=== PATIENT | female | born 1970 | race Asian ===

== ENCOUNTER 2018-08-01 00:35 | Emergency (ER) | payer OTHER, SELFPAY ==
[2018-08-01 00:56] VITALS: BP 149/83; PULSE 58; RESP 18; TEMP 36.8; O2SAT 100; BMI 31.7
[2018-08-01] MEDS: KETOROLAC 60 MG/2 ML VIAL 30 MG IV (01:28)
[2018-08-01] MEDS: ONDANSETRON 4 MG/2 ML INJ IV ×2 (01:29→03:14)
[2018-08-01] MEDS: SODIUM CHLORIDE 0.9% 1,000 ML 1000 ML IV (01:29)
[2018-08-01] MEDS: HYDROMORPHONE 1 MG INJ IV ×2 (01:29→03:34)
[2018-08-01 01:35] VITALS: BP 106/60; PULSE 69; RESP 18; O2SAT 98
[2018-08-01 02:15] LABS: Alanine Aminotransferase 36 IU/L (9-52); Albumin 4.5 g/dL (3.5-5.0); Albumin Globulin Ratio 1.4 (1.0-2.8); Alkaline Phosphatase 91 U/L (38-126); Aspartate Aminotransferase 33 IU/L (14-36); BUN Creatinine Ratio 26.7 (6-22); Bilirubin Total 0.8 mg/dL (0.2-1.3); Blood Urea Nitrogen 24 mg/dL (7-17); Calcium 8.8 mg/dL (8.4-10.2); Carbon Dioxide 23 mmol/L (22-32); Chloride 103 mmol/L (98-107); Estimated Glomerular Filt Rate > 60.0 mL/min (>60); Globulin 3.3 g/dL (1.7-4.1); Glucose 142 mg/dL (70-100); HEMOLYSIS < 15 (0-50); Lipase 148 U/L (23-300); Potassium 3.9 mmol/L (3.4-5.1); Sodium 140 mmol/L (137-145); Total Protein 7.8 g/dL (6.3-8.2)
[2018-08-01 02:18] LABS: Add Manual Diff / Slide Review NO; Basophils Percent Auto 0.8 % (0-2); Hematocrit 39.9 % (36-46); Hemoglobin 13.7 g/dL (12.0-16.0); Lymphocytes Percent Auto 26.7 % (25-40); Mean Corpuscular HGB Conc 34.5 % (30-36); Mean Corpuscular Hemoglobin 28.8 PG (26-34); Mean Corpuscular Volume 83.7 fL (80-100); Monocytes Percent Auto 6.7 % (3-14); Neutrophils Absolute Auto 5800 /uL (3000-5900); Neutrophils Percent Auto 62.8 % (50-75); Platelet Count 183 X10^3/uL (150-400); Red Blood Cell Count 4.76 X10^6/uL (4.0-5.2); Red Cell Distribution Width 14.2 % (11.6-14.8); White Blood Cell Count 9.3 X10^3/uL (4.5-11.0)
--- NOTE | 2018-08-01 02:21 | DI.CT.S_ITS ---
PROCEDURE: CT ABDOMEN PELVIS W CON INDICATIONS: low abdominal pain TECHNIQUE: After the administration of intravenous contrast, 5 mm thick sections acquired from the diaphragm to the symphysis. 5 mm coronal and sagittal reformats were acquired. For radiation dose reduction, the following was used: automated exposure control, adjustment of mA and/or kV according to patient size. COMPARISON: None. FINDINGS: Image quality: Excellent. ABDOMEN: Lung bases: Lung bases are clear. Heart size is normal. Solid organs: Liver is normal in size and enhancement. There is several subcentimeter hepatic cysts and a 1.2 cm hepatic cyst near the upper margin of the intrahepatic IVC. Gallbladder appears normal. Biliary system is non dilated. Pancreas enhances normally. Spleen is normal in size and enhancement. No adrenal nodules. Kidneys demonstrate normal size and enhancement, without hydronephrosis on the left but there is mild hydronephrosis on the right and hydroureter extending inferiorly through the right retroperitoneum to the submucosal tunnel margin of the distal right ureter where a 2 mm impacted far distal ureteral stone can be seen. Peritoneum and bowel: Bowel loops demonstrate normal wall thickness and caliber. No free fluid or air. Nodes and vessels: No retroperitoneal or mesenteric adenopathy by size criteria. Aorta and inferior vena cava are normal in size. Miscellaneous: No ventral hernias. PELVIS: Genitourinary: Bladder wall thickness is normal. Miscellaneous: No inguinal hernias or adenopathy. Normal appendix found. Bones: No suspicious bony lesions. No vertebral body compression fractures. IMPRESSION: Far distal right ureteral stone measures 2 mm, and is at the submucosal tunnel portion of the distal ureteral course virtually at the ureteral orifice. This produces mild hydronephrosis and hydroureter on the right but no additional urinary tract stone is found. Normal appendix. Note: These findings are concordant with the preliminary interpretation. Dictated by: Hector Hernandez M.D. on 08/01/2018 at 9:22 Approved by: Hector Hernandez M.D. on 08/01/2018 at 9:25
[2018-08-01 02:43] LABS: WBC Urine None Seen (0-5/HPF)
[2018-08-01 02:45] LABS: Bilirubin Urine UA NEGATIVE (NEGATIVE); Color Urine UA YELLOW; Glucose Urine UA NEGATIVE (Normal); Ketones Urine UA NEGATIVE (NEGATIVE); Leukocyte Esterase Urine UA NEGATIVE (NEGATIVE); Nitrite Urine UA Negative (Negative); Occult Blood Urine UA 3+ (Negative); Protein Urine UA 1+ (Negative); Specific Gravity Urine UA >=1.030 (1.000-1.035); Urobilinogen Urine UA 0.2 E.U./dL (0.2)
[2018-08-01 02:46] LABS: Appearance Urine UA Cloudy
[2018-08-01 02:47] LABS: Pregnancy Test Urine Negative (Negative)
[2018-08-01 02:59] LABS: Bacteria Urine Few (2-10); Calcium Oxalate Crystals Urine Few; RBC Urine 1-5/HPF (0-5/HPF)
[2018-08-01 03:00] LABS: Culture Indicated Urine Cult Not Indicated
[2018-08-01] MEDS: METOCLOPRAMIDE 10 MG/2 ML INJ IV (03:14)
[2018-08-01 03:50] VITALS: BP 140/76; PULSE 72; RESP 15; O2SAT 98
--- NOTE | 2018-08-08 11:54 | ED_ITS ---
HPI - Abdominal Pain General Chief Complaint: Abdominal Pain Stated Complaint: SHARP RIGHT SIDE STOMACH PAIN Time Seen by Provider: 08/01/18 01:02 Source: patient Mode of arrival: ambulatory Limitations: no limitations History of Present Illness HPI narrative: Patient complains of right-sided abdominal pain today. She denies fevers. No nausea or vomiting. No trauma. No dysuria. No sick contacts. Onset (ago): day(s) (One) Pain Consistency: constant Location: RUQ and RLQ Severity: moderate Quality: aching Radiation: none Migration to: no migration Relieving factors: nothing Exacerbating factors: nothing Context: other (No recent antibiotic use, no diarrhea) Associated symptoms: denies other symptoms Related Data Previous Rx's Medication Instructions Recorded hydrocodone-acetaminophen 2 tab PO Q4-6H PRN #14 tab 08/01/18 ondansetron 4 mg PO QID PRN #14 tab 08/01/18 Allergies Allergy/AdvReac Type Severity Reaction Status Date / Time No Known Drug Allergies Allergy Verified 08/01/18 00:56 Review of Systems Review of Systems All systems reviewed & are unremarkable except as noted in HPI and below Constitutional Denies chills, Denies fever(s), Denies lethargy and Denies weakness Eyes Denies change in vision, Denies eye discharge, Denies irritation and Denies loss of vision ENT Ears, Nose, Mouth, and Throat: Denies change in voice, Denies neck pain and Denies sore throat Cardiovascular Denies chest pain, Denies irregular heart rhythm, Denies lightheadedness, Denies palpitations, Denies dyspnea, Denies dyspnea on exertion and Denies orthopnea Respiratory Denies cough, Denies dyspnea, Denies dyspnea on exertion and Denies wheezing Gastrointestinal Gastrointestinal: Reports abdominal pain, Denies change in bowel habits, Denies diarrhea, Denies nausea and Denies vomiting Genitourinary Denies hematuria, Denies flank pain, Denies urinary incontinence and Denies urinary urgency Musculoskeletal Denies neck pain Integumentary/Breasts Denies pruritus, Denies erythema, Denies rash and Denies wounds Neurologic Denies confusion, Denies loss of vision and Denies weakness Psychiatric Denies anxiety, Denies confusion, Denies depression, Denies homicidal ideation and Denies suicidal ideation Endocrine Denies palpitations Hematologic/Lymphatic Denies easy bruising Allergic/Immunologic Denies wheezing PFSH Medical History Healthy adult (Acute) Surgical History No pertinent past surgical history (Acute) Social History Smoking Status: Never smoker Exam Initial Vital Signs Initial Vital Signs: Vital Signs Temperature 98.3 F 08/01/18 00:56 Pulse Rate 58 L 08/01/18 00:56 Respiratory Rate 18 08/01/18 00:56 Blood Pressure 149/83 H 08/01/18 00:56 Pulse Oximetry 100 08/01/18 00:56 Const General: cooperative and well developed Nutritional Appearance: well nourished Orientation: alert, awake, oriented x3 and not confused HENMT Head: normocephalic and atraumatic Ears: external ears normal and TM's normal bilaterally Nose: external nose normal and No nasal discharge Face and sinus: sinuses nontender, face symmetric, no sinus tenderness and No dry mucous membranes Mouth: oral mucosae normal and moist mucous membranes Teeth and gingiva: dentition normal Throat: tonsils normal and uvula midline Eyes General: appearance normal, both eyes and all related structures Eyelids: eyelids normal Conjunctivae: conjunctivae normal Sclera: sclerae normal Pupils: PERRL EOM: EOM intact bilaterally Neck Neck: normal visual inspection, trachea midline, No lymphadenopathy, No midline deformity and No JVD Lymphatic: No lymphedema Chest Chest: normal inspection of the chest Resp Effort & Inspection: normal respiratory effort, able to speak in complete sentences, no respiratory distress and no use of accessory muscles Auscultation: clear to auscultation bilaterally, no rales, no rhonchi and no wheezes Cardio Rate: regular rate Rhythm: regular rhythm Heart Sounds: no click, no gallops, no murmurs and no rubs Pulses: normal peripheral pulses GI Inspection: non-distended Palpation: soft, no hepatosplenomegaly, No guarding, No pulsatile mass and tender (Mild, right lower quadrant.) Auscultation: normal bowel sounds Back/Spine/Pelvis Back: No CVA tenderness Cervical Spine: cervical ROM normal and No pain with cervical ROM Thoracic/Lumbar Spine: thoracic and lumbar spine normal to inspection Skin General: no rashes or lesions noted, No jaundice and No petechiae Neuro General: alert, oriented x3, gait normal and no focal motor deficits Speech: speech normal Extrem General: full ROM, no clubbing, cyanosis or edema, no pedal edema and no calf tenderness Psych Appearance: well kempt Mental Status: mental status grossly normal Attitude: cooperative Thought Content: normal and suicidality Judgment: judgment good Course Course Narrative: Patient was worked up for her right lower quadrant pain including labs and CT imaging. She was treated symptomatically. She was found to have a right-sided stone in the distal ureter. Orders Ordered: Discontinued Medications Hydromorphone HCl (Dilaudid) 1 mg IV NOW ONE Stop: 08/01/18 01:24 Last Admin: 08/01/18 01:29 Dose: 1 mg Hydromorphone HCl (Dilaudid) 1 mg IV NOW ONE Stop: 08/01/18 03:32 Last Admin: 08/01/18 03:34 Dose: 1 mg Sodium Chloride (Normal Saline 0.9%) 1,000 mls @ 1,000 mls/hr IV BOLUS ONE Stop: 08/01/18 02:23 Last Infusion: 08/01/18 02:41 Dose: 0 mls/hr Admin: 08/01/18 01:29 Dose: 1,000 mls/hr Ketorolac Tromethamine (Toradol) 30 mg IV NOW ONE Stop: 08/01/18 01:24 Last Admin: 08/01/18 01:28 Dose: 30 mg Metoclopramide HCl (Reglan) 10 mg IV NOW ONE Stop: 08/01/18 03:13 Last Admin: 08/01/18 03:14 Dose: 10 mg Ondansetron HCl (Zofran) 4 mg IV NOW ONE Stop: 08/01/18 01:24 Last Admin: 08/01/18 01:29 Dose: 4 mg Ondansetron HCl (Zofran) 4 mg IV NOW ONE Stop: 08/01/18 03:13 Last Admin: 08/01/18 03:14 Dose: 4 mg MDM - Abdominal Pain Medical Records Attestation: I reviewed the patient's medical records. Lab Data Attestation: I reviewed the patient's lab results. Result diagrams: 08/01/18 01:50 08/01/18 01:50 Lab Results 08/01/18 08/01/18 08/01/18 Range/Units 01:50 01:50 02:05 WBC 9.3 (4.5-11.0) X10^3/uL RBC 4.76 (4.0-5.2) X10^6/uL Hgb 13.7 (12.0-16.0) g/dL Hct 39.9 (36-46) % MCV 83.7 (80-100) fL MCH 28.8 (26-34) PG MCHC 34.5 (30-36) % RDW 14.2 (11.6-14.8) % Plt Count 183 (150-400) X10^3/uL Neut % (Auto) 62.8 (50-75) % Lymph % (Auto) 26.7 (25-40) % Norman % (Auto) 6.7 (3-14) % Eos % (Auto) 3.0 (2-4) % Baso % (Auto) 0.8 (0-2) % Neut # (Auto) 5800 (9829-6512) /uL Sodium 140 (137-145) mmol/L Potassium 3.9 (3.4-5.1) mmol/L Chloride 103 (98-107) mmol/L Carbon Dioxide 23 (22-32) mmol/L BUN 24 H (7-17) mg/dL Creatinine 0.90 (0.52-1.04) mg/dL Estimated GFR > 60.0 (>60) mL/min BUN/Creatinine Ratio 26.7 H (6-22) Glucose 142 H (70-100) mg/dL Calcium 8.8 (8.4-10.2) mg/dL Total Bilirubin 0.8 (0.2-1.3) mg/dL AST 33 (14-36) IU/L ALT 36 (9-52) IU/L Alkaline Phosphatase 91 (38-126) U/L Total Protein 7.8 (6.3-8.2) g/dL Albumin 4.5 (3.5-5.0) g/dL Globulin 3.3 (1.7-4.1) g/dL Albumin/Globulin Ratio 1.4 (1.0-2.8) Lipase 148 (23-300) U/L Urine Color Yellow Urine Appearance Cloudy Urine pH 5.0 (4.5-8.0) Ur Specific [place] >=1.030 H (1.000-1.035) Urine Protein 1+ H (Negative) Urine Glucose (UA) Negative (Normal) g/dL Urine Ketones Negative (NEGATIVE) Urine Occult Blood 3+ H (Negative) Urine Nitrate Negative (Negative) Urine Bilirubin Negative (NEGATIVE) Urine Urobilinogen 0.2 (0.2) E.U./dL Ur Leukocyte Esterase Negative (NEGATIVE) Urine RBC 1-5/hpf (0-5/HPF) Urine WBC None seen (0-5/HPF) Calcium Oxalate Crystal Few H (None) Urine Bacteria Few (2-10) H (None) Ur Culture Indicated? Cult not indicated Micro UA Comment * Urine Test (Negative) 08/01/18 Range/Units 02:05 WBC (4.5-11.0) X10^3/uL RBC (4.0-5.2) X10^6/uL Hgb (12.0-16.0) g/dL Hct (36-46) % MCV (80-100) fL MCH (26-34) PG MCHC (30-36) % RDW (11.6-14.8) % Plt Count (150-400) X10^3/uL Neut % (Auto) (50-75) % Lymph % (Auto) (25-40) % Norman % (Auto) (3-14) % Eos % (Auto) (2-4) % Baso % (Auto) (0-2) % Neut # (Auto) (0075-2930) /uL Sodium (137-145) mmol/L Potassium (3.4-5.1) mmol/L Chloride (98-107) mmol/L Carbon Dioxide (22-32) mmol/L BUN (7-17) mg/dL Creatinine (0.52-1.04) mg/dL Estimated GFR (>60) mL/min BUN/Creatinine Ratio (6-22) Glucose (70-100) mg/dL Calcium (8.4-10.2) mg/dL Total Bilirubin (0.2-1.3) mg/dL AST (14-36) IU/L ALT (9-52) IU/L Alkaline Phosphatase (38-126) U/L Total Protein (6.3-8.2) g/dL Albumin (3.5-5.0) g/dL Globulin (1.7-4.1) g/dL Albumin/Globulin Ratio (1.0-2.8) Lipase (23-300) U/L Urine Color Urine Appearance Urine pH (4.5-8.0) Ur Specific [place] (1.000-1.035) Urine Protein (Negative) Urine Glucose (UA) (Normal) g/dL Urine Ketones (NEGATIVE) Urine Occult Blood (Negative) Urine Nitrate (Negative) Urine Bilirubin (NEGATIVE) Urine Urobilinogen (0.2) E.U./dL Ur Leukocyte Esterase (NEGATIVE) Urine RBC (0-5/HPF) Urine WBC (0-5/HPF) Calcium Oxalate Crystal (None) Urine Bacteria (None) Ur Culture Indicated? Micro UA Comment Urine Test Negative (Negative) Imaging Data CT scan - abdomen: Radiologist's impression: [address] [address] [address] Scan Report Signed Patient: Socorro Bond MR#: [id number] : 1970 Acct:[id number] Age/Sex: 48 / F Date of Service: 08/01/18 Loc: ED Accession Number: [id number] Procedure: CT abdomen pelvis w con Ordering Provider: Matilde Barrow MD PROCEDURE: CT ABDOMEN PELVIS W CON INDICATIONS: low abdominal pain TECHNIQUE: After the administration of intravenous contrast, 5 mm thick sections acquired from the diaphragm to the symphysis. 5 mm coronal and sagittal reformats were acquired. For radiation dose reduction, the following was used: automated exposure control, adjustment of mA and/or kV according to patient size. COMPARISON: None. FINDINGS: Image quality: Excellent. ABDOMEN: Lung bases: Lung bases are clear. Heart size is normal. Solid organs: Liver is normal in size and enhancement. There is several subcentimeter hepatic cysts and a 1.2 cm hepatic cyst near the upper margin of the intrahepatic IVC. Gallbladder appears normal. Biliary system is non dilated. Pancreas enhances normally. Spleen is normal in size and enhancement. No adrenal nodules. Kidneys demonstrate normal size and enhancement, without hydronephrosis on the left but there is mild hydronephrosis on the right and hydroureter extending inferiorly through the right retroperitoneum to the submucosal tunnel margin of the distal right ureter where a 2 mm impacted far distal ureteral stone can be seen. Peritoneum and bowel: Bowel loops demonstrate normal wall thickness and caliber. No free fluid or air. Nodes and vessels: No retroperitoneal or mesenteric adenopathy by size criteria. Aorta and inferior vena cava are normal in size. Miscellaneous: No ventral hernias. PELVIS: Genitourinary: Bladder wall thickness is normal. Miscellaneous: No inguinal hernias or adenopathy. Normal appendix found. Bones: No suspicious bony lesions. No vertebral body compression fractures. IMPRESSION: Far distal right ureteral stone measures 2 mm, and is at the submucosal tunnel portion of the distal ureteral course virtually at the ureteral orifice. This produces mild hydronephrosis and hydroureter on the right but no additional urinary tract stone is found. Normal appendix. Note: These findings are concordant with the preliminary interpretation. Dictated by: Hector Hernandez M.D. on 08/01/2018 at 9:22 Approved by: Hector Hernandez M.D. on 08/01/2018 at 9:25 Discharge Plan Departure Patient Disposition: Home Clinical Impression: Ureterolithiasis Discharge Date/Time: 08/01/18 03:51 Interventions: ED Discharge Assessment Last Done: 08/01/18 03:50 Instructions: DI for Kidney Stones Activity Restrictions/Additional Instructions: Your labs looked good. Your CT scan showed a kidney stone on the right, which has almost passed into your bladder. This should pass fairly easily on its own in the next 1-3 days, though it may cause some pain and nausea in the process. Occasionally, it can take a kidney stone a few weeks to pass. However this is unlikely to be the scenario in your case. You may take the pain and nausea medication as needed; you should also focus on drinking a lot of liquids. Please follow up with your primary care physician as needed. If you develop a fever, or are unable to hold down your medications home, please return to the emergency department. Prescriptions: New hydrocodone-acetaminophen 5-325 mg tablet 2 tab PO Q4-6H PRN (Reason: pain) Qty: 14 RF: 0 ondansetron 4 mg tablet,disintegrating 4 mg PO QID PRN (Reason: nausea and vomiting) Qty: 14 RF: 0 Referrals: [facility] [Provider Group] ( Please establish care with a primary care physician, and follow up as needed.)
== END 2018-08-01 03:51 | disposition home or self-care (01) ==
PROVIDERS: Emergency Provider Emergency Medicine
DX: N20.1 Calculus of ureter (principal)
CPT/HCPCS: 36591; 74177; 80053; 81001; 81025; 83690; 85025; 96361; 96374; 96375; 96376; 99283; 99285; J1170; J1885; J2405; J2765; Q9967